=== PATIENT | male | born 1965 | race Caucasian/White ===

== ENCOUNTER 2019-08-12 22:23 | Emergency (ER) | payer OTHER ==
[~2019-08-12] VITALS: Ht 165.1 cm; Wt 90.7 kg
[2019-08-13] MEDS ORDERED: KETO10TA2 PO (02:03)
== END 2019-08-13 02:04 | disposition home or self-care (01) ==
LOC: ER 22:23
DX: M75.51 Bursitis of right shoulder (principal)

== ENCOUNTER 2021-04-08 07:44 | Emergency (ER) | payer OTHER ==
[~2021-04-08] VITALS: Ht 165.1 cm; Wt 90.7 kg
[~2021-04-08 07:44] MED LIST: KETO10TA2 PO
[2021-04-08] MEDS ORDERED: TAMS0.4C PO (14:20)
[2021-04-08] MEDS ORDERED: KETO10TA2 PO (14:20)
== END 2021-04-08 14:33 | disposition home or self-care (01) ==
LOC: ER 07:44
DX: N20.0 Calculus of kidney (principal)

== ENCOUNTER 2024-08-22 00:01 | Emergency (ER) | payer OTHER ==
[~2024-08-22] VITALS: Ht 165.1 cm; Wt 92.5 kg
[~2024-08-22 00:01] MED LIST changes: +TAMS0.4C PO
[2024-08-22] MEDS ORDERED: KETOROLAC TROMETHAMINE 60 MG VIAL IM STA (03:41)
[2024-08-22] MEDS ORDERED: CLINDAMYCIN PHOSPHATE 150 MG/ML (600mg) IM STA (03:41)
== END 2024-08-22 03:55 | disposition home or self-care (01) ==
LOC: ER 00:03
DX: L03.011 Cellulitis of right finger (principal); Z91.011 Allergy to milk products

== ENCOUNTER → 2024-12-23 | Emergency (ER) | payer OTHER ==
[~2024-12-23] VITALS: Ht 165.1 cm; Wt 95.3 kg
== END | disposition home or self-care (01) ==
LOC: ER 13:55
DX: S99.821A Other specified injuries of right foot, initial encounter (principal); W19.XXXA Unspecified fall, initial encounter; Y93.89 Activity, other specified; Y92.89 Other specified places as the place of occurrence of the external cause; Y99.8 Other external cause status; M79.674 Pain in right toe(s); Z91.011 Allergy to milk products